=== PATIENT | male | born 2005 | race Caucasian/White ===

== ENCOUNTER → 2024-01-11 13:27 | Outpatient (REF) | payer OTHER, SELFPAY | LOC: RAD 13:27 | PROVIDERS: ATTENDING PHYSICIAN Nurse Practitioner Family | DX: R23.1 Pallor (principal); E10.69 Type 1 diabetes mellitus with other specified complication | CPT/HCPCS: 93922; 93925 ==

== ENCOUNTER → 2024-09-13 13:16 | Outpatient (REF) | payer OTHER, SELFPAY | LOC: RAD 13:16 | PROVIDERS: ATTENDING PHYSICIAN Orthopaedic Surgery Hand Surgery; FAMILY PHYSICIAN Nurse Practitioner Family | DX: M25.511 Pain in right shoulder (principal) | CPT/HCPCS: 23350; 73040; 73222 ==